=== PATIENT | female | born 1990 | race African-American/Black ===

== ENCOUNTER 2019-08-21 14:48 | Outpatient (CLI) | payer OTHER, SELFPAY ==
--- NOTE | ~2019-08-21 | XR_ITS ---
EXAMINATION: XR thoracic spine 2V DATE: 08/21/2019 15:08 INDICATION: Mid back pain. TECHNIQUE: One AP, lateral and lateral swimmer's views of the thoracic spine were obtained. COMPARISON: Two-view chest radiograph dated 06/06/2017 FINDINGS: Hypoplastic riblets/unfused transverse processes bilaterally at L1. There are 12 more cephalad paired rib-bearing thoracic segments. 6 degrees Lasix levocurvature measured between T6 and T11. Sagittal a lignment is normal. Vertebral body and disc heights are normal. Paravertebral soft tissues are unrema rkable. Visual is portions of the lungs are clear with no pleural effusion or pneumothorax. Cardiomed iastinal silhouette is normal. IMPRESSION: 1. Mild thoracic levocurvature. Reviewed, dictated and finalized at location A. E EMBOSSER
[2019-08-21 15:26] LABS: Influenza Control Valid (Valid)
== END 2019-08-21 14:49 | disposition home or self-care (01) ==
LOC: CHSLAB 14:52
PROVIDERS: PCP Internal Medicine; Visit Provider Nurse Practitioner Family
DX: J02.9 Acute pharyngitis, unspecified (principal); J06.9 Acute upper respiratory infection, unspecified; M54.9 Dorsalgia, unspecified
CPT/HCPCS: 72070; 87081; 87804; 87880

== ENCOUNTER 2019-12-05 14:29 | Outpatient (CLI) | payer OTHER, SELFPAY | END 2019-12-05 14:30 | disposition home or self-care (01) | LOC: CHSLAB 14:31 | PROVIDERS: PCP Internal Medicine; Visit Provider Internal Medicine | DX: J02.9 Acute pharyngitis, unspecified (principal) | CPT/HCPCS: 87081; 87880 ==

== ENCOUNTER 2020-07-23 15:19 | Outpatient (CLI) | payer OTHER, SELFPAY ==
--- NOTE | ~2020-07-23 | XR_ITS ---
XR lumbar spine 2-3V DATE: 07/23/2020 15:49 INDICATION: Lower back pain radiating to left lower extremity TECHNIQUE: AP, lateral, coned lateral lumbosacral views COMPARISON: None FINDINGS: There is very mild dextroscoliosis of the lumbar spine. No fracture or bone destruction or spondylolisthesis. The lumbar and lumbosacral interspaces are well preserved. The included lower thoracic and lumbar pedicles are intact. The sacroiliac joints are nor mal. There is a prominent amount of fecal material in the colon. IMPRESSION: Very mild dextro scoliosis; otherwise negative lumbar spine Reviewed, dictated and finalized at location A. RY SUPERVISOR OPEN PIT
== END 2020-07-23 15:20 | disposition home or self-care (01) ==
LOC: CHSLAB 15:22
PROVIDERS: PCP Internal Medicine; Visit Provider Internal Medicine
DX: M54.9 Dorsalgia, unspecified (principal); M54.30 Sciatica, unspecified side
CPT/HCPCS: 72100

== ENCOUNTER 2020-07-27 08:06 | Outpatient (RCR) | payer OTHER, SELFPAY ==
--- NOTE | 2020-07-27 08:49 | PTOPEVAL ---
Thank you for referring Elisha Demarco to [facility].? The patient is scheduled to be seen for therapy? __2__x/week for 12 visits. Please review, sign, date and return this plan of care JULIETA. I agree with and certify that the following plan of care is medically necessary. Referring Physician Date Admitting Provider: Attending Provider: Joshua Cook MD Referring Provider: *PT Outpatient Evaluation Start: 07/27/20 08:06 Freq: Status: Active Protocol: Document 07/27/20 08:06 TED (Rec: 07/27/20 08:47 TED [id number]) Therapy Assessment Status Assessment Status Assessment Status Evaluation Evaluation Information Problem Diagnosis lumbar pain Onset 07/12/20 Subjective Information Pt. reports that she woke with Query Text:As Reported By Patient/ low back pain about 2 weeks Family ago. Pt. describes pain in the left low back and across. She states that pain will shoot down the front of the left leg to her toes. She reports that pain will make falling asleep difficult. She reports that she has 3 small children that she does lift often. She reports that she has hx of back pain, and states that she has had on/off pain since high school. She reports that her goal for therapy is to decrease her back pain. Prior Level of Function Activity Level (Last 3 Months) Occupation student Hand Dominance Right Activity of Daily Living Ability Independent Indoor/Home Mobility Independent Community Mobility Independent Stairs Ability Independent Functional Cognition (Planning, Shopping Independent , Taking Medications) Cooking Yes Cleaning Yes Laundry Yes Shopping Yes Driving Yes Pain Assessment Timing of Pain Assessment Timing of Pain Assessment Pre-Treatment Pain Scale Pain Scale Used Numeric (1 - 10) Self Report Pain Assessment Lower Back Reported Pain Level 4 Pain Description Radiating Pain Radiation Left Leg Pain Frequency Continuous Lowest Pain Intensity 4 Greatest Pain Intensity 7 Pain Aggravating Factors
== END 2020-09-29 14:37 | disposition home or self-care (01) ==
LOC: CHSPT 08:06
PROVIDERS: PCP Internal Medicine; Visit Provider Internal Medicine
DX: M54.5 Low back pain (principal)
CPT/HCPCS: 97014; 97110; 97140; 97161; G0283

== ENCOUNTER 2021-07-13 17:48 | Outpatient (CLI) | payer OTHER, SELFPAY ==
--- NOTE | ~2021-07-13 | XR_ITS ---
EXAMINATION: XR chest 2V DATE: 07/13/2021 18:08 INDICATION: Cough and shortness of breath. TECHNIQUE: Frontal and lateral views of the chest were obtained. COMPARISON: Chest 2 views 06/06/2017 FINDINGS: The chest demonstrates clear lungs without pneumonia, pleural effusion, or pneumothorax. Th e heart size is normal. IMPRESSION: 1. No acute cardiopulmonary disease. Reviewed, dictated and finalized at location A. [place] BAKERY MANAGER
[2021-07-13 18:04] LABS: Basophils Absolute Auto 0.02 K/mm3 (0.00-0.10); Basophils Percent Auto 0.3 % (0.0-1.0); Eosinophils Percent Auto 1.5 % (1.0-6.0); Hematocrit 37.2 % (35.0-49.0); Hemoglobin 12.1 g/dL (12.0-15.0); Immature Granulocyte Absolute 0.02 K/mm3 (0.00-0.00); Immature Granulocyte Percent A 0.3 % (0.0-0.0); Lymphocytes Absolute Auto 1.13 K/mm3 (1.10-4.50); Lymphocytes Percent Auto 17.3 % (18.0-42.0); Mean Corpuscular HGB Conc 32.5 g/dL (32.0-36.0); Mean Corpuscular Hemoglobin 28.9 pg (27.0-31.0); Mean Platelet Volume 11.2 fl (9.2-11.8); Monocytes Absolute Auto 0.59 K/mm3 (0.10-0.90); Neutrophils Absolute Auto 4.7 K/mm3 (1.7-7.2); Neutrophils Percent Auto 71.6 % (50.0-70.0); Platelet Count Result 302 K/mm3 (150-420); Red Blood Count 4.18 M/mm3 (4.20-5.40); Red Cell Distribution Width 11.9 % (11.6-14.4); White Blood Count 6.6 K/mm3 (4.8-10.8)
[2021-07-13 18:18] LABS: D Dimer 0.24 mg/L (0.19-0.50)
[2021-07-13 18:21] LABS: Alanine Aminotransferase 44 U/L (14-59); Albumin Level 3.4 g/dL (3.4-5.0); Alkaline Phosphatase 79 U/L (46-116); Anion Gap 11 mmol/L (8-16); Aspartate Amino Transferase 25 U/L (15-37); Bilirubin,Total 0.4 mg/dL (0.00-1.00); Blood Urea Nitrogen 4 mg/dL (7-18); CRP 5.7 mg/dL (0.0-0.9); Calcium 8.9 mg/dL (8.5-10.1); Carbon Dioxide 26 mmol/L (21-32); Chloride 101 mmol/L (98-108); Estimated Glomerular Filt Rate > 60; Glucose 89 mg/dL (70-99); Osmolality Calculated 281 mOsm/kg (285-295); Potassium 3.3 mmol/L (3.5-5.1); Sodium 138 mmol/L (136-145); Total Protein 7.9 g/dL (6.4-8.2)
== END 2021-07-13 17:49 | disposition home or self-care (01) ==
PROVIDERS: PCP Internal Medicine; Visit Provider Internal Medicine
DX: R05.9 Cough, unspecified (principal); R06.02 Shortness of breath
CPT/HCPCS: 36415; 71046; 80053; 85025; 85380; 86140

== ENCOUNTER 2021-07-25 15:46 | Outpatient (CLI) | payer OTHER, SELFPAY ==
--- NOTE | ~2021-07-25 | XR_ITS ---
EXAMINATION: XR chest 2V DATE: 07/25/2021 16:16 INDICATION: Upper respiratory infection TECHNIQUE: PA and lateral views of the chest are obtained. COMPARISON: 07/13/2021 FINDINGS: The lungs are free of acute opacities. There is no pleural effusion or pneumothorax. The ca rdiomediastinal silhouette is normal. The visualized bones and soft tissues are unremarkable. IMPRESSION: 1. No acute cardiopulmonary abnormality. Reviewed, dictated and finalized at location B. CTOR OF CARDIOLOGY
[2021-07-25 16:09] LABS: Hematocrit 41.6 % (35.0-49.0); Hemoglobin 13.4 g/dL (12.0-15.0); Mean Corpuscular HGB Conc 32.2 g/dL (32.0-36.0); Mean Corpuscular Hemoglobin 28.6 pg (27.0-31.0); Mean Corpuscular Volume 88.7 fL (78.0-102.0); Mean Platelet Volume 11.2 fl (9.2-11.8); Platelet Count Result 323 K/mm3 (150-420); Red Blood Count 4.69 M/mm3 (4.20-5.40); Red Cell Distribution Width 11.9 % (11.6-14.4); White Blood Count 3.6 K/mm3 (4.8-10.8)
[2021-07-25 16:20] LABS: Influenza Control Valid (Valid)
[2021-07-25 16:23] LABS: Alanine Aminotransferase 45 U/L (14-59); Albumin Level 3.9 g/dL (3.4-5.0); Alkaline Phosphatase 74 U/L (46-116); Amylase 91 U/L (25-115); Anion Gap 11 mmol/L (8-16); Aspartate Amino Transferase 21 U/L (15-37); Bilirubin,Total 0.5 mg/dL (0.00-1.00); Blood Urea Nitrogen 10 mg/dL (7-18); Carbon Dioxide 26 mmol/L (21-32); Chloride 99 mmol/L (98-108); Estimated Glomerular Filt Rate > 60; Glucose 96 mg/dL (70-99); Lipase 150 U/L (73-393); Osmolality Calculated 281 mOsm/kg (285-295); Potassium 3.6 mmol/L (3.5-5.1); Sodium 136 mmol/L (136-145); Total Protein 8.7 g/dL (6.4-8.2)
[2021-07-25 16:36] LABS: Band Neutrophils Percent 0 % (0-6); Basophils Percent Manual 0 % (0-1); Eosinophils Absolute Manual 0.21 K/mm3 (0.02-0.5); Eosinophils Percent Manual 6 % (1-6); Lymphocytes Absolute Manual 0.86 K/mm3 (1.1-4.5); Lymphocytes Percent Manual 24 % (18-44); Monocytes Percent Manual 14 % (3-9); Neutrophils Absolute Manual 2.01 K/mm3 (1.7-7.2); Neutrophils Percent Manual 56 % (46-73); Platelet Estimate Adequate (Adequate); Total Cells Counted 100
== END 2021-07-25 15:47 | disposition home or self-care (01) ==
LOC: CHSLAB 15:48
PROVIDERS: PCP Internal Medicine; Visit Provider Nurse Practitioner Family
DX: J06.9 Acute upper respiratory infection, unspecified (principal); Z86.16 Personal history of COVID-19; R09.89 Other specified symptoms and signs involving the circulatory and respiratory systems; R50.9 Fever, unspecified; R11.10 Vomiting, unspecified
CPT/HCPCS: 71046; 80053; 82150; 83690; 85025; 87804

== ENCOUNTER 2022-03-15 18:02 | Outpatient (CLI) | payer OTHER, SELFPAY ==
--- NOTE | ~2022-03-15 | XR_ITS ---
EXAM: XR hand LT min 3V, XR wrist LT min 3V DATE: 03/15/2022 18:28 HISTORY: LEFT WRIST PAIN. TENDONITIS. LEFT HAND PAIN . COMPARISON: None available. FINDINGS: Normal mineralization. No fracture or dislocation. No lytic or blastic lesion. Joint space s are maintained. No erosion or periosteal change. Soft tissues within normal limits. IMPRESSION: Normal left hand and wrist radiograph findings. Reviewed, dictated and finalized at location K. IMPRESSION: Normal left hand and wrist radiograph findings.
== END 2022-03-15 18:03 | disposition home or self-care (01) ==
LOC: CHSIMG 18:04
PROVIDERS: PCP Internal Medicine; Visit Provider Internal Medicine
DX: M25.532 Pain in left wrist (principal)
CPT/HCPCS: 73110; 73130

== ENCOUNTER 2022-09-20 17:34 | Outpatient (CLI) | payer OTHER, SELFPAY ==
[2022-09-20 19:11] LABS: Strep Group A RT-PCR NOT DETECTED (Negative)
[2022-09-20 19:22] LABS: Influenza A QL RT-PCR Negative (Negative); Influenza B QL RT-PCR Negative (Negative); SARS-CoV-2 RNA PCR Negative (Negative)
== END 2022-09-20 17:35 | disposition home or self-care (01) ==
PROVIDERS: PCP Internal Medicine; Visit Provider Internal Medicine
DX: J06.9 Acute upper respiratory infection, unspecified (principal); Z20.822 Contact with and (suspected) exposure to COVID-19
CPT/HCPCS: 87502; 87651; U0003; U0005

== ENCOUNTER 2022-11-14 09:37 | Outpatient (CLI) | payer OTHER, SELFPAY ==
--- NOTE | ~2022-11-14 | XR_ITS ---
EXAMINATION: XR wrist LT min 3V DATE: 11/14/2022 09:52 INDICATION: Left wrist pain. TECHNIQUE: 4 views of left wrist were obtained. COMPARISON: Left hand radiographs 03/15/2022 FINDINGS: Bone alignment is normal. No fracture. Joint spaces are well maintained. IMPRESSION: 1. Normal left wrist. Reviewed, dictated and finalized at location A. IMPRESSION: 1. Normal left wrist.
== END 2022-11-14 09:38 | disposition home or self-care (01) ==
LOC: CHSIMG 09:39
PROVIDERS: PCP Internal Medicine; Visit Provider Orthopaedic Surgery
DX: M25.532 Pain in left wrist (principal)
CPT/HCPCS: 73110

== ENCOUNTER 2022-11-23 07:47 | Outpatient (CLI) | payer OTHER, SELFPAY ==
--- NOTE | ~2022-11-23 | MR_ITS ---
MRI of the left wrist Technique: Coronal T1 weighted and proton density fat sat images, and axial and sagittal proton-densi ty and proton-density fat-sat images were acquired. Clinical History: Mass at base of thumb Findings: Scapholunate ligament is intact, and there is no widening of the scapholunate interval. Erickson otriquetral ligament is intact. TFCC is intact, without evidence of perforation. Bone marrow signals are unremarkable. Joint spaces are preserved. At the volar aspect of the first ca rpal metacarpal joint region, there is a 1.6 x 0.7 x 1.2 cm ganglion cyst. No other abnormal soft tis ana maria mass or fluid collection identified. Flexor and extensor tendons are intact. Visualized musculatu re unremarkable. IMPRESSION: 1.6 x 0.7 x 1.2 cm ganglion cyst at the volar aspect of the first CMC joint region. Reviewed, dictated and finalized at [facility]. IMPRESSION: 1.6 x 0.7 x 1.2 cm ganglion cyst at the volar aspect of the first CMC joint reg ion.
== END 2022-11-23 07:48 | disposition home or self-care (01) ==
PROVIDERS: PCP Internal Medicine; Visit Provider Orthopaedic Surgery
DX: R22.32 Localized swelling, mass and lump, left upper limb (principal); M67.432 Ganglion, left wrist
CPT/HCPCS: 73221

== ENCOUNTER 2023-01-03 01:08 | Day surgery (SDC) | payer OTHER, SELFPAY ==
[2022-12-25 12:45] VITALS: BMI 23.3
--- NOTE | 2022-12-25 12:58 | PC.NURSE ---
Report to the Outpatient Waiting Room, entrance under the green pavilion located off [facility], at 1200 on 01/03/23. Planned Procedure Time: 1400. Time changes happen often and if your time is changed the preop area will call you the afternoon before. - You and your visitor will be asked to self-screen and do not enter if you have any COVID symptoms. - A mask is optional within the hospital at this time. Patients may have clear liquids (water, carbonated beverages, clear teas, apple juice) until 3 hours prior to surgery with a maximum of 20 ounces. - No food from midnight until time of surgery Take the following medications with a SIP of water the morning of surgery: N/A DO NOT STOP ANY OF YOUR OTHER PRESCRIPTION MEDICATIONS PRIOR TO SURGERY ?EXCEPT THE FOLLOWING Medications to discontinue per physician N/A Date to take last dose N/A Please no make-up, nail malagasy, hairspray, perfume, deodorant, or body powder the day of surgery. No jewelry (including any body piercings) or valuables the day of surgery, leave them at home. Please take a shower or bath the night before, or the morning of, surgery with an antibacterial soap. Wear comfortable, loose fitting clothing. - Jewelry must be removed prior to entering the operating room. Rings and piercings that are not removed may be cut off. - The hospital will not accept responsibility for valuables. - Please leave all valuables, including medications, at home the day of surgery. If you are going home after surgery, a licensed yard driver must drive you home. - NO public transportation without another adult if you receive anesthesia. - We recommend that an adult stay with you for 24 hours following discharge. - We also recommend that you do not drive, make important decision, drink alcoholic beverages, or take any drugs that were not prescribed by your health care provider for at least 24 hours after your discharge time. Follow any additional instructions given to you from your surgeon. If you or anyone in your household have experienced Covid symptoms in the past week, please notify your surgeon or the nurse liaison at the phone number below for possible testing. Telephone instructions given to patient and asked if any additional questions and then verbalized understanding. Patient advised to call surgeon office or pre surgery nurse liaison [phone] if any additional questions.
[2023-01-03] VITALS (9 sets, daily range): BP systolic 109–131; BP diastolic 65–81; PULSE 60–73; RESP 12–16; TEMP 36.3–36.8; O2SAT 99–100
--- NOTE | 2023-01-03 07:15 | WPDHPUPDATE1 ---
History and Physical Update Update Date/Time: 01/03/23 07:15 History and Physical has been reviewed, including an updated exam of the patient. There are NO changes in the patient's condition. Risks, benefits, and alternatives have been discussed and questions answered. Patient agrees to proceed with procedure.
[2023-01-03] MEDS: ACETAMINOPHEN 500 MG TABLET 1000 MG PO (12:46)
[2023-01-03] MEDS: CELECOXIB 200 MG CAPSULE PO (12:46)
--- NOTE | 2023-01-03 14:08 | P.PNAN_ITS ---
Anes - Initial Pre Proc Eval Procedure: Operation Date: 01/03/23 14:00 Proposed Procedures p Excision Mass Left Wrist - Fabien Cat MD Date/Time: 01/03/23 14:08 Surgeon: Fabien Cat MD Pre Op Diagnosis: left wrist ganglion cyst Patient Data Age: 32 Gender: F Height: 1.57 m Weight: 59.2 kg Last Vital Signs Temp 98.3 F 01/03/23 12:37 Pulse 66 01/03/23 12:37 Resp 16 01/03/23 12:37 BP 109/74 01/03/23 12:37 Pulse Ox 100 01/03/23 12:37 O2 Del Method Room Air 01/03/23 12:37 Allergies Allergy/AdvReac Type Severity Reaction Status Date / Time Penicillins AdvReac Intermediate Swelling Verified 01/03/23 12:05 Home Medications Medication Instructions Recorded Confirmed Type chlorhexidine gluconate 4 % 1 applic topical DAILY #237 mL 12/27/22 Rx topical liquid (Hibiclens) rizatriptan 5 mg disintegrating 5 mg PO DAILY PRN Migraine Headache 01/03/23 01/03/23 History tablet Patient hx anesthesia problems: none Family hx anesthesia problems: none Results Review: All pre-operative results and documents have been reviewed as part of the pre- operative evaluation. [facility] Family History Family History Unknown Asthma Hypertension Depression Heart disease Arthritis Cerebrovascular accident Kidney disorder Social History Social History Smoking status: Former smoker Tobacco type: cigars Additional smoking assessment comments: occasional in high school 2008 Alcohol intake: current Drinks per week: 2 Substance use: former Other substance usage details: marijuana in college Living arrangements: with family Gender identity (if verbalized by the patient): Female Spiritual care concerns: No Anes - Eval Final PreProcedure Day of Procedure 01/03/23 14:08 Patient weight: normal Heart: regular rate and rhythm Lungs: clear to auscultation Airway: Mallampati scale class II Neurological: alert and oriented Last oral intake: >/= 8 hours ASA classification: II Emergent: no Anesthetic plan: proceed Anesthesia type and monitoring: general GIVS and standard monitoring Results Review: All pre-operative results and documents have been reviewed as part of the pre- operative evaluation. Informed Consent: The patient's anesthetic plan and its attendant risks and benefits were discussed with the patient/family/POA. Questions were solicited and answers provided to the satisfaction of the patient/family/POA.
[2023-01-03] MEDS: ceFAZolin 2 GM/D5W 50 ML 2 GM/50 ML BAG IVPB (14:47)
--- NOTE | 2023-01-03 15:08 | PM.IMHP ---
H&P: HPI History of Present Illness Date/Time: 01/03/23 15:08 Chief Complaint: LEFT THUMB AND WRIST PAIN. Narrative: CARLOS IS HERE FOR FOR LEFT THUMB AND WRST PAIN. SHE HAS A LARGE GANGLION AT THE 1ST CMC JOINT AND SHE IS HERE FOR EXCISION OF GANGLION LEFT WRIST Review of Systems Review of Systems: All systems reviewed & are unremarkable except as noted in HPI and below PMFSH Family History Family History Unknown Asthma Hypertension Depression Heart disease Arthritis Cerebrovascular accident Kidney disorder Social History Social History Smoking status: Former smoker Tobacco type: cigars Additional smoking assessment comments: occasional in high school 2008 Alcohol intake: current Drinks per week: 2 Substance use: former Other substance usage details: marijuana in college Living arrangements: with family Gender identity (if verbalized by the patient): Female Spiritual care concerns: No Meds Home Medications and Allergies Home Medications Medication Instructions Recorded Confirmed Type chlorhexidine gluconate 4 % 1 applic topical DAILY #237 mL 12/27/22 Rx topical liquid (Hibiclens) rizatriptan 5 mg disintegrating 5 mg PO DAILY PRN Migraine Headache 01/03/23 01/03/23 History tablet Allergies Allergy/AdvReac Type Severity Reaction Status Date / Time Penicillins AdvReac Intermediate Swelling Verified 01/03/23 12:05 Vital Signs Vital Signs - 24 hr 01/03/23 12:37 Temperature 36.8 C Pulse Rate 66 Respiratory Rate 16 Blood Pressure 109/74 Pulse Oximetry 100 Oxygen Delivery Room Air Exam Const: General: cooperative and healthy appearing HENMT: Head: normal to inspection Ears: hearing grossly normal bilaterally Eyes: General: appearance normal, both eyes and all related structures Visual Guillen: normal visual guillen by confrontation Neck: Neck: normal visual inspection and full ROM Resp: Effort & Inspection: normal respiratory effort and able to speak in complete sentences Cardio: Jugular venous distension: no JVD Rate: regular rate Rhythm: regular rhythm Heart sounds: S1 normal heart sound present and S2 normal heart sound present Skin: General skin exam: normal color, no rashes or lesions noted and elasticity normal Neuro: General: oriented to person, oriented to place, oriented to time, patient oriented x3 and gait normal Extrem: Left upper extremity: wrist abnormal to inspection, tenderness, swelling, abnormal ROM, crepitus, deformity (MASS OVER 1ST CMC JOINT ), normal Jan's test, Tinel's negative and Phalen's negative; no abrasions, no lacerations and no ecchymosis and hand normal to inspection, normal capillary refill, neuromotor exam normal, neurosensory exam normal, tendon exam normal, vascular exam radial pulse present, ulnar pulse present and normal capillary refill, normal ROM of fingers and no swelling; no tenderness, no abrasions, no lacerations and no ecchymosis Psych: Appearance: grossly normal and well kempt Speech and movement: Normal speech and movement present Affect: normal affect Thought process: Normal thought process present Assessment and Plan Assessment and plan (1) Mass of left wrist: Code(s): R22.32 - Localized swelling, mass and lump, left upper limb Status: Acute Assessment and Plan: CARLOS IS HERE FOR EXCISION OF MASS LEFT WRIST WHICH IS MOST LIKE A GANGLION CYST FROM THE 1ST CMC JOINT. SHE HAS BEEN IN PAIN FOR MANY MOS AND THUS AFFECTS HER DAILY ACTIVITIES. DISCUSSED NONOPERATIVE AND OPERATIVE TREATMENT OPTIONS WITH THE PATIENT. THE PATIENT'S QUESTIONS WERE ANSWERED. THE PATIENT DESIRES OPERATIVE TREATMENT. HISTORY, EXAM AND RADIOGRAPHS REVIEWED WITH THE PATIENT. REFERRING PHYSICIAN RECORDS AND IMAGES REVIEWED. CONDITION, NATURE, ETIOLOGY AND COURSE OF NATURAL HISTORY REVIEWED. ZURDO
[2023-01-03] MEDS: BUPivacaine HCL 0.5% 10 ML AMP INFILTRATE (15:33)
[2023-01-03] MEDS: LACTATED RINGERS 1,000 ML 30 ML IV CONT ×2 (16:10→16:20)
--- NOTE | 2023-01-03 16:25 | W.PM.PROC2 ---
Procedure Note - Detailed Date of Procedure 01/03/23 Pre-op Diagnosis left wrist ganglion cyst Post-op Diagnosis Same Procedure Performed LEFT WRIST MASS Surgeon Fabien Cat MD Anesthesia General Description of Procedure THE LEFT UPPER EXTREMITY WAS PREPPED AND DRAPED IN THE STERILE FASHION. THE MASS WAS IDENTIFIED OVER THE 1ST CMC JOINT AT THE VOLAR WRIST. INCISION WAS MADE.DOWN TO THE SUB CUTANEOUS TISSUES. DISSECTION CONTINUED UNTIL THE MASS WAS IDENTIFIED. IT APPEARED TO BE A GANGLION CYST. DISSECTION CONTINUED TILL THE CMC JOINT WAS IDENTIFIED. THE CYST STALK WAS THEN IDENTIFIED AND THE CYST WAS REMOVED FROM ITS ORIGIN IN ITS ENTIRETY. THE TOURNIQUET WAS DEFLATED. THE WOUND WAS WASHED AND THE BLEEDERS WERE CAUTERIZED. THE SUB-CUTANEOUS LAYER WAS REPAIRED WITH 3-0 VICRYL, THEN THE SKIN WAS APPROXIMATED WITH 4-0 NYLON. THE WOUND WAS WASHED AND STERILE DRESSING WAS APPLIED. THE PATIENT WAS EXTUBATED. Estimated Blood Loss -5.0 Complications No immediate complications Condition Stable Disposition PACU
[2023-01-03] MEDS: ONDANSETRON INJ 4 MG/2 ML VIAL IV PUSH ×2 (16:29→17:41)
[2023-01-03] MEDS: fentaNYL CITRATE INJ (*CRX) 100 MCG/2 ML VIAL 25 MCG IV PUSH (16:47)
[2023-01-03] MEDS: SCOPOLAMINE 1.5 MG PATCH TRANSDERM (17:41)
[2023-01-03] MEDS: oxyCODONE HCL (*CRX) 5 MG TAB IR PO (18:23)
== END 2023-01-03 18:50 | disposition home or self-care (01) ==
PROVIDERS: PCP Internal Medicine; Visit Provider Orthopaedic Surgery
PROC: (CPT 25111; principal; 2023-01-03 14:00)
DX: M67.432 Ganglion, left wrist (principal)
CPT/HCPCS: 25111; A9270; J0690; J1100; J2250; J2405; J2704; J3010; J7120

== ENCOUNTER 2023-06-08 17:22 | Emergency (ER) | payer OTHER, SELFPAY ==
[2023-06-08 17:29] VITALS: BP 135/79; PULSE 81; RESP 12; TEMP 37.2; O2SAT 100
[2023-06-08 18:06] LABS: Basophils Absolute Auto 0.01 K/mm3 (0.00-0.10); Basophils Percent Auto 0.2 % (0.0-1.0); Eosinophils Absolute Auto 0.07 K/mm3 (0.02-0.50); Eosinophils Percent Auto 1.5 % (1.0-6.0); Hematocrit 32.9 % (35.0-49.0); Hemoglobin 10.5 g/dL (12.0-15.0); Immature Granulocyte Absolute 0.01 K/mm3 (0.00-0.00); Immature Granulocyte Percent A 0.2 % (0.0-0.0); Lymphocytes Percent Auto 34.4 % (18.0-42.0); Mean Corpuscular HGB Conc 31.9 g/dL (32.0-36.0); Mean Corpuscular Hemoglobin 27.9 pg (27.0-31.0); Mean Corpuscular Volume 87.5 fL (78.0-102.0); Mean Platelet Volume 10.8 fl (9.2-11.8); Monocytes Absolute Auto 0.41 K/mm3 (0.10-0.90); Monocytes Percent Auto 8.8 % (2.0-11.0); Neutrophils Absolute Auto 2.6 K/mm3 (1.7-7.2); Neutrophils Percent Auto 54.9 % (50.0-70.0); Platelet Count Result 268 K/mm3 (150-420); Red Blood Count 3.76 M/mm3 (4.20-5.40); Red Cell Distribution Width 12.5 % (11.6-14.4); White Blood Count 4.7 K/mm3 (4.8-10.8)
[2023-06-08 18:10] LABS: Appearance Urine Clear (Clear); Bilirubin Urine Negative (Negative); Color Urine Light Yellow (Yellow); Glucose Urine UA Negative (Negative); Ketones Urine Negative (Negative); Leukocyte Esterase Ur Trace LEU/UL (Negative); Nitrate Urine Negative (Negative); Protein Urine Negative (Negative); Urobilinogen Urine 0.2 mg/dL (0.2-1.0)
[2023-06-08] MEDS: LACTATED RINGERS 1,000 ML 999 ML IV CONT (18:11)
[2023-06-08 18:12] LABS: Pregnancy On Board Control Positive; Urine Pregnancy Test Positive
[2023-06-08] MEDS: ONDANSETRON INJ 4 MG/2 ML VIAL IV PUSH (18:12)
[2023-06-08 18:22] LABS: Add Urine Microscopic? YES; Alanine Aminotransferase 20 U/L (14-59); Albumin Level 3.6 g/dL (3.4-5.0); Alkaline Phosphatase 55 U/L (46-116); Anion Gap 5 mmol/L (8-16); Aspartate Amino Transferase 11 U/L (15-37); Bacteria Urine Trace /hpf; Bilirubin,Total 0.2 mg/dL (0.00-1.00); Blood Urea Nitrogen 8 mg/dL (7-18); Blood Urine Trace-lysed (Negative); Calcium 8.7 mg/dL (8.5-10.1); Carbon Dioxide 28 mmol/L (21-32); Chloride 101 mmol/L (98-108); Estimated CRCL calculation 70 ml/min; Estimated Glomerular Filt Rate > 60; Glucose 96 mg/dL (70-99); Osmolality Calculated 276 mOsm/kg (285-295); Potassium 3.6 mmol/L (3.5-5.1); Sodium 134 mmol/L (136-145); Squamous Epithelial Cell Urine Few /hpf (Few); Total Protein 7.5 g/dL (6.4-8.2); WBC Urine 0-3 /hpf (0-3)
--- NOTE | 2023-06-08 18:24 | PC.NURSE ---
attempts to start iv unsuccessful x2.
[2023-06-08 18:25] LABS: Lactic Acid Reflex 0.7 mmol/L (0.4-2.0)
--- NOTE | 2023-06-08 18:35 | PC.NURSE ---
hiv testing declined and form signed.
[2023-06-08] MEDS: ACETAMINOPHEN 500 MG TABLET 1000 MG PO (19:43)
--- NOTE | 2023-06-08 19:46 | ED.ABDPAIN ---
HPI - Abdominal Pain General Chief Complaint: Abdominal Pain Stated Complaint: vaginal bleeding; abdominal pain Time Seen by Provider: 06/08/23 17:50 Source: patient Mode of arrival: ambulatory Limitations: no limitations History of Present Illness HPI narrative: Patient is a 32-year-old female with no significant past medical history that presents today with minor pelvic pain. She states she has a bili pain for the last few days. She did heal precede this last week that was positive. She has had some spotting. She denies any large amounts of blood but just spotting of blood. She had minor pelvic pain after intercourse. She denies any systemic symptoms. She is not seeing her Test Rack Operator yet. MD elicited complaint: other Pertinent past history: none Onset (ago): minute(s) Pain Consistency: constant Location: none Severity: mild Quality: cramping Radiation: none Migration to: no migration Exacerbating factors: nothing Relieving factors: nothing Context: confirms foreign travel Associated symptoms: denies other symptoms Related Data Hx Last Menstrual Period: unknown Patient : Yes Home Medications Medication Instructions Recorded Confirmed rizatriptan 5 mg disintegrating 5 mg PO DAILY PRN Migraine Headache 01/03/23 04/17/23 tablet Allergies Allergy/AdvReac Type Severity Reaction Status Date / Time Penicillins AdvReac Intermediate Swelling Verified 04/17/23 09:21 Review of Systems Review of Systems: All systems reviewed & are unremarkable except as noted in HPI and below Constitutional: Constitutional: Reports no additional constitutional complaints Eyes: Eyes: Reports no additional eye complaints ENT: Reports system reviewed and no additional complaints, except as documented Cardiovascular: Cardiovascular: Reports no additional cardiovascular complaints Respiratory: Respiratory: Reports no additional respiratory complaints Gastrointestinal: Gastrointestinal: Reports as per HPI Genitourinary: Genitourinary: Reports as per HPI Musculoskeletal: Musculoskeletal: Reports no additional musculoskeletal complaints Integumentary/Breasts: Skin/Breast: Reports system reviewed and no additional complaints, except as docu Neurologic: Reports system reviewed and no additional complaints, except as documented Psychiatric: Psychiatric: Reports no additional psychiatric complaints Endocrine: Endocrine: Reports no additional endocrine complaints Hematologic/Lymphatic: Hematologic/Lymphatic: Reports no additional hematologic/lymphatic complaints Allergic/Immunologic: Allergic/Immunologic: Reports no additional allergic/immunologic complaints PMFSH Family History Family History Unknown Asthma Hypertension Depression Heart disease Arthritis Cerebrovascular accident Kidney disorder Social History Social History Smoking status: Former smoker Tobacco type: cigars Additional smoking assessment comments: occasional in high school 2008 Alcohol intake: current Drinks per week: 2 Substance use: former Other substance usage details: marijuana in college Living arrangements: with family Gender identity (if verbalized by the patient): Female Spiritual care concerns: No Exam Const: General: healthy appearing Nutritional Appearance: well nourished Orientation/consciousness: patient oriented x3 Limitations: no limitations HENMT: Head: normal to inspection Ears: external ears normal Face/Nose/Sinus: Normal external nose present Face and sinus: normal facial exam Mouth: Yes Normal oral and palatal mucosa present Teeth and gingiva: dentition normal Throat: posterior oropharynx normal Eyes: Conjunctivae: conjunctivae normal Pupils: Equal, round and reactive pupils present EOM: EOMs intact bilaterally Neck: Neck: normal visual inspection Chest: Chest palpatio
== END 2023-06-08 20:29 | disposition home or self-care (01) ==
PROVIDERS: Emergency Provider Family Medicine; PCP Internal Medicine
DX: O23.40 Unspecified infection of urinary tract in pregnancy, unspecified trimester (principal); N39.0 Urinary tract infection, site not specified; Z3A.00 Weeks of gestation of pregnancy not specified; Z87.891 Personal history of nicotine dependence
CPT/HCPCS: 36415; 80053; 81001; 81025; 83605; 84702; 85025; 96361; 96374; 99284; J2405; J7120

== ENCOUNTER 2025-03-20 08:24 | Emergency (ER) | payer OTHER, SELFPAY ==
[2025-03-20] VITALS (22 sets, daily range): BP systolic 114–143; BP diastolic 76–91; PULSE 60–77; RESP 11–19; TEMP 36.8; O2SAT 97–100
--- NOTE | ~2025-03-20 | XR_ITS ---
Examination: XR chest 1V portable Clinical History: acute onset cp Comparison: 07/25/2021 Technique: Portable AP Findings: Heart size normal. Lungs clear. No acute bony abnormality. IMPRESSION: 1. No acute cardiopulmonary findings given portable technique. Reviewed, dictated and finalized at location R.
--- NOTE | 2025-03-20 08:24 | ECG_ITS ---
Test Date: 2025-03-20 08:29:23 Measurements Intervals Aston Rate: 72 P: 55 LA: 152 QRS: 28 QRSD: 77 T: 35 QT: 393 QTc: 432 Interpretive Statements SINUS RHYTHM NONSPECIFIC T-WAVE ABNORMALITY No previous ECG available for comparison Electronically Signed On 03-20-2025 20:09:28 CDT by Malinda Levine M.D.
--- OUTSIDE RECORDS SUMMARY | 2025-03-20 08:27 | XMS_ITS | Encounter Summary ---
Author Organization [facility] Healthcare Address [address] [place] [address] Care Team Providers Care Robotic Machine Tender Production Name Role Phone No, Physician Primary Care Provider Unknown, Notinfile Primary Care Provider Unavail able Joshua Cook MD Primary Care Provider [phone] Mikki Reddy MD Primary Care Provider [phone] Jamel Peacock MD Unavailable [phone] Encounter Details Date Type Department Care Team (Late st Contact Info) Description 07/15/2018 Documentation [facility] [address] [place] [address] Izzy Ayoub RN Social History Tobacco Use Types Packs/Day Years Used Date Smoking Tobacco: Never Smokeless Tobacco: Never Alcohol Use Standard Drinks/Week Comments No 0 (1 standard drink = 0.6 oz pur e alcohol) Comments Yes Sex and Gender Information Value Date Recorded Sex Assigned at Not on file Legal Sex Female 1:43 PM SCIENTIST ENGINEER Gender Identity Female 10/02/2019 12:38 PM CDT Sexual Orientation Straight 10/02/2019 12 :38 PM CDT documented as of this encounter Plan of Treatment Not on file documented as of this encounter Visit Diagnoses Not on filedocumented in this encounter Additional Health Concerns Infection Onset Date Last Indicated Resolved Time COVID: Suspected 08/16/2023 08/16/2023 08/16/2023 5:10 PM SCIENTIST ENGINEER COVID: Suspected 08/16/2023 08/16/2023 08/17/2023 3:05 AM SCIENTIST ENGINEER COVID: Suspected 08/16/2023 08/16/2023 08/17/2023 7:02 AM SCIENTIST ENGINEER documented as of this encounter Care Teams Robotic Machine Tender Production Relationship Specialty Start Date End Date No, Physician PCP - General 04/03/17 04/19/20 Unknown, Notinfile PCP - General 04/20/20 04/07/21 Joshua Cook MD PCP - General 04/08/21 09/21/23 Mikki Reddy MD [address] [place] [address] PCP - General Family Medicine 09/22/23 Jamel Peacock MD [address] [place] [address] Predator Control Trapper Obstetrics and Gynecology 04/09/24 documented as of this encounter
--- OUTSIDE RECORDS SUMMARY | 2025-03-20 08:27 | XMS_ITS | Clinical Summary ---
Author Organization [facility] Address [address] [place] [id number] Care Team Providers Care Shoveler Name Role Phone Mikki Reddy MD Primary Care Provider [phone] Jamel Peacock MD Unavailable [phone] Allergies Active Allergy Reactions Criticality Noted Date Comments Penicillins Unknown 07/01/2017 Medications norethindrone (MICRONOR) 0.35 mg tabletIndications: Contraception Take one pill by mouth every day on time 28 tablet 12 05/19/2024 Active Active Problems Problem Noted Date Diagnosed Date Iron deficiency anemia, unspecified 12/17/2023 Vitamin D deficiency 10/15/2023 Pelvic and perineal pain 03/02/2022 Assessment & Plan (03/02/2022 10:54 AM CDT): Discussed options To decrease her caffeine and urinate at normal intervals To try benefiber daily We discussed adding ocp at the nexplanon does not seem to be suppressing her ovulation May be muscular as it does happen with working and 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 She will call if the pain worsens Recurrent major depressive disorder 12/15/2021 Assessment & Plan (12/28/2021 7:02 AM CDT): Mood off today, but I think she has so much going on with work and the kids, she is overwhelmed. She declines meds. I think she needs sleep and help at home Lymphadenopathy, axillary 12/15/2021 Overview (12/15/2021): 2 cm left axilla Assessment & Plan (12/15/2021 4:08 PM CDT): To keep track of. If it is still there in 2 weeks will decide on further evaluation. Leukocytosis 05/30/2021 Overview (05/30/2021): Will plan to repeat her cbc when she comes for f/u in 3 months. 05/29/21 CMT DUB (dysfunctional uterine bleeding) 05/27/2021 Assessment & Plan (12/15/2021 3:52 PM CDT): resolved Assessment & Plan (09/07/2021 11:52 AM CDT): Better today after two packs of ocn Assessment & Plan (05/27/2021 9:31 AM SKILL TRAINING PROGRAM COORDINATOR): Most likely secondary to the cyst or the Nexplanon To ocp x 2m To repeat usg in 3m. F/u after Ovarian cyst 05/27/2021 Overview (03/02/2022): 10/2021- 3x3 x2cm 03/02/22- left <2cm, Right 2.7. The cyst from 10/2021 has resolved. Assessment & Plan (03/02/2022 10:55 AM CDT): The previous cyst has resolved. Assessment & Plan (12/15/2021 3:58 PM CDT): Will plan to repeat in 3m. Assessment & Plan (09/07/2021 11:53 AM CDT): Options discussed. She will think about and let me know. Low grade squamous intraepit h lesion on cytologic smear cervix (lgsil) 02/10/2020 Overview (09/07/2021): Per JT note, last 3 paps (last 2.2020) wnl Assessment & Plan (03/02/2022 10:54 AM CDT): Last pap was wnl Will repeat in 11/2022 Assessment & Plan (12/28/2021 7:00 AM CDT): .pap done today. Await results. Assessment & Plan (09/07/2021 11:53 AM CDT): Due for wwe History of depression 04/18/2018 Assessment & Plan (12/28/2021 7:01 AM CDT): Mood off today, but I think she has so much going on with work and the kids, she is overwhelmed. Resolved Problems Problem Noted Date Diagnosed Date Resolved Date IUGR, 04/08/2024 05/19/2024 37 weeks gestation of 04/08/2024 05/19/2024 Vaginal delivery 04/08/2024 05/19/2024 Poor growth affecting management of mother in third trimester 04/04/2024 05/19/2024 GBS (group B Streptococcus c arrier), +RV culture, currently 03/23/2024 05/19/2024 Low-lying placenta 12/17/2023 Overview (03/07/2024): Posterior: 1.5 cm away from internal os. Resolved in January. Maternal iron deficiency ane nadir complicating in second trimester 12/17/2023 05/19/2024 Encounter for evaluation reg arding contraception options 08/10/2022 03/21/2024 Assessment & Plan (08/10/2022 2:10 PM SKILL TRAINING PROGRAM COORDINATOR): nexplanon removed without difficulty Care instructions reviewed rto November for wwe Well woman exam 10/24/2021 03/25/2024 Overview (12/28/2021): Lab: Pap:h/o abnl. Needs yearly. She has had three normals since No recent labs. Cheryle: Colonoscopy: BMD: Gardasil:need to discuss Assessment & Plan (12/28/2021 7:04 AM CDT): Pap done. RTO 12m. I will send the results to the portal. If she has not heard in a week, to call the office. nexplanon due out 06/2022 She is not sure what she will do after. Anemia affecting in third trimester 10/01/19 19 06/26/2019 Premature cervical dilation in third trimester 08/23/2018 06/26/2019 Short cervix affecting 08/02/2018 06/07/2021 Overview (08/02/2018): 1.7 cm with funneling on office sono 2018. Depression during in first trimester 04/18/2018 06/26/2019 No pathologic diagnosis 07/19/201203/26 Overview (09/27/2016): No diagnosis Vaginal delivery 06/26/2019 Encounters Date Type Department Care Team Description 01/26/2025 Home Infusion [facility] [address] [place] [address] Renee Cadet, [facility] from Last 3 Months Immunizations Immunization Administration Dates Next Due Influenza, Quadrivalent, Spl it, Preservative Free, Intramuscular 08/02/2018 Influenza, Trivalent, Preser vative Free, Intramuscular 04/04/2024(Deferred: Patient ill today) Tdap 03/21/2024 Surgical History Surgery Date Site/Laterality Comments OTHER SURGICAL HISTORY 2012 : OTHER SURGICAL HISTORY 2016 : 1 hr labor OTHER SURGICAL HISTORY LGSIL pap and positive HR HPV in 2016: Colpo OTHER SURGICAL HISTORY 2016 LGSIL pap and positive HR 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 Medical History Medical History Date Comments Hx Other Medical 2011 ; Outc ome: 37 week 5 lb(s) 13 oz Female Hx Other Medical ; Outc ome: 37W0D week 6lb(s) 6 oz Male Hx Other Medical 2014 LGSIL pap and p ositive HR HPV in 2016 Hx Other Medical 2015 LGSIL pap and p ositive HR HPV in 2016 Abnormal Pap smear of cervix HX of LSIL and HPV Anxiety Miscarriage 07/2023 Family History Medical History Relation Name Comments Breast cancer Father's Sister Cancer, caterina ast; Heart disease Maternal Grandmother Heart disease; Heart disease Mother Heart disease; Prostate cancer Paternal Grandfather Canc er, prostate; Diabetes Paternal Grandmother Diabete s mellitus; Hypertension Paternal Grandmother Hyperte nsion; Lung cancer Paternal Grandmother Cancer, lung; Cancer Neg Hx no change cmt Relation Name Status Comments Father's Sister Maternal Grandmother Mother Paternal Grandfather Paternal Grandmother Social History Tobacco Use Types Packs/Day Years Used Date Smoking Tobacco: Never Passive Smoke Exposure: Never Smokeless Tobacco: Never Tobacco Cessation:Counseling Given: Not Answered Alcohol Use Standard Drinks/Week Comments No 0 (1 standard drink = 0.6 oz pur e alcohol) [facility] Utilities Answer Date Recorded In the past 12 months has e [facility] [place], gas, oil, or water [employer] threatened to shut off services in your home? Yes 03/28/2024 Humiliation, Afraid, Rape, and Kick questionnair e Answer Date Recorded Within the last year, have y ou been afraid of your partner or ex-partner? No 03/28/2024 Within the last year, have y ou been humiliated or emotionally abused in other ways by your partner or ex-partner? No Within the last year, have y ou been kicked, hit, slapped, or otherwise physically hurt by your partner or ex-partner? No 03/28/2024 Within the last year, have y ou been raped or forced to have any kind of sexual activity by your partner or ex-partner? No 03/28/2024 Social Connection and Isolation Panel Answer Date Recorded In a typical week, how many times do you talk on the phone with family, friends, or neighbors? More than three times a week 04/08/2024 How often do you get togethe r with friends or relatives? More than three times a week 04/08/2024 How often do you attend chur ch or taoism services? Never 04/08/2024 Do you belong to any clubs o r organizations such as taoism groups, unions, fraternal or athletic groups, or school groups? Yes 04/08/2024 How often do you attend meet ings of the clubs or organizations you belong to? More than 4 times per year 04/08/2024 Are you , , di vorced, , never , or living with a partner? Never 04/08/2024 AUDIT-C Answer Date Recorded Q1: How often do you have a drink containing alcohol? Never 04/08/2024 Q2: How many drinks containi ng alcohol do you have on a typical day when you are drinking? Patient does not drink Q3: How often do you have si x or more drinks on one occasion? Never 04/08/2024 Overall Financial Resource Strain (CARDIA) Answe r Date Recorded How hard is it for you to pa y for the very basics like food, housing, medical care, and heating? Not hard at all 04/08/2024 PHQ-2 Answer Date Recorded PHQ-2 Total Score (If total score is 3 or more points, staff should administer the PHQ-9) 2 04/08/2024 [facility]ational Stress Questionnaire Answer Date Recorded Do you feel stress - tense, restless, nervous, or anxious, or unable to sleep at night because your mind is troubled all the time - these days? To some extent 04/08/2024 Exercise Vital Sign Answer Date Recorde d On average, how many days pe r week do you engage in moderate to strenuous exercise (like a brisk walk)? 0 days 04/08/2024 On average, how many minutes do you engage in exercise at this level? 0 min 04/08/2024 Hunger Vital Sign Answer Date Recorded Within the past 12 months, y ou worried that your food would run out before you got the money to buy more. Often true 04/08/20 24 Within the past 12 months, t he food you bought just didn't last and you didn't have money to get more. Often true 04/08/2024 PRAPARE - Transportation Answer Date Re corded In the past 12 months, has l ack of transportation kept you from medical appointments or from getting medications? No 03/25 In the past 12 months, has l ack of transportation kept you from meetings, work, or from getting things needed for daily living? No 04/08/2024 Rea Depression Scale Answer Date Recorded Rea Depression Scale Total 4 03/28/2024 The thought of harming myself has occurred to me . Never 03/28/2024 PHQ-9 Answer Date Recorded PHQ-9 Total Score 8 04/08/2024 Housing Stability Vital Sign Answer Margarito e Recorded In the last 12 months, was t here a time when you were not able to pay the mortgage or rent on time? No 04/08/2024 In the past 12 months, how m any times have you moved where you were living? 0 04/08/2024 At any time in the past 12 m onths, were you homeless or living in a chcf (including now)? No 04/08/2024 Personal Safety Answer Date Recorded Have you ever been in or are you currently in a harmful physical or emotional relationship or is someone making you feel afraid or unsafe? Denies 04/08/2024 Comments No Sex and Gender Information Value Date Recorded Sex Assigned at Not on file Legal Sex Female 1:43 PM SKILL TRAINING PROGRAM COORDINATOR Gender Identity Female 10/02/2019 12:38 PM CDT Sexual Orientation Straight 10/02/2019 12 :38 PM CDT Obstetrics History Para Term AB IAB SAB Ectopic Multiple Livin g Live Births 6 4 4 0 2 0 2 0 0 4 4 Date Outcome GA Total Labor Labor/2nd/3rd Weight Sex Type Anes PTL Vanessa A1 A5 Name Clin SAB 2 Term 37w 0d 2.637 kg (5 lb 13 oz) F Vag-Sp ont Livin g 6 Term 37w 0d 2.892 kg (6 lb 6 oz) M Vag-Sp ont Livin g 2018 Term 38w 2d 1h 18m 1h 10m/0h 03m/0h 05m 2.806 kg (6 lb 3 oz) M Vag-Sp ont Local N Livin g 8 9 SIMMO NS,AVERY YCHRI TOBI Charles y, Jose Francisco Rodriguez MD Complications:None Delivery Location:This [facility] ([facility]) 2023 SAB 5w0 d SAB 2023 Term 37w 0d 0h 20m 0h 06m/0h 06m/0h 08m 2.411 kg (5 lb 5 oz) F Vagina l Local Y Livin g 7 9 Allou ra Jose Francisco Rivas MD Complications:None Delivery Location:This [facility] ([facility]) Last Filed Vital Signs Vital Sign Reading Time Taken Comments Blood Pressure 110/76 05/19/2024 1:17 PM SKILL TRAINING PROGRAM COORDINATOR Pulse 62 04/10/2024 4:00 PM CDT Temperature 36.2 C (97.2 F) 04/10/2024 4:00 PM CDT Respiratory Rate 15 04/09/2024 11:54 PM CDT Oxygen Saturation 100% 04/09/2024 12:44 AM CDT Inhaled Oxygen Concentration - - Weight 59.4 kg (131 lb) 05/19/2024 1:17 PM SKILL TRAINING PROGRAM COORDINATOR Height 157.5 cm (5' 2) 05/19/2024 1:17 PM SKILL TRAINING PROGRAM COORDINATOR Body Mass Index 23.96 05/19/2024 1:17 PM SKILL TRAINING PROGRAM COORDINATOR Plan of Treatment Health Maintenance Due Date Last Done Comments Varicella Vaccines (1 of 2 - 13+ 2-dose series) 09/23/2003 Hepatitis B Screening 2008 HPV Vaccines (1 - 3-dose SCDM series) 2017 Regular Well Visit/Exam 18-64 12/15/2022 12/15/2021, 08/17/2020, 06/26/2019, Additional history exists Cervical Cancer Screening 10/11/20242023, 12/15/2021, 08/17/2020, Additional history exists Influenza Vaccine (#1) 2025 08/02/2018 Depression Screening 03/28/2025 03/28/2024, 03/23/2024, 03/23/2024, Additional history exists DTaP/Tdap/Td Vaccine (7 - Td or Tdap) 03/21/2034 03/21/2024, 03/06/1995, 11/02/1992, Additional history exists Hepatitis C Screening Completed 10/12/2023 , 04/18/2018, 06/14/2015 Pneumococcal vaccine <65 Aged Out No longer eligible based on patient's age to complete this topic Procedures Procedure Name Priority Date/Time Associated Diagnosis Comments HEPATITIS C ANTIBODY Routine 10/12/2023 2:33 PM CDT Encounter for supervision of other normal in first trimester PAP AND HPV, REFLEX TO HPV GENOTYPES Routine 10/12/2023 2:23 PM CDT Encounter for supervision of other normal in first trimester 11 weeks gestation of from Last 3 Months or Most Recently Relevant to Health Maintenance Results * Hepatitis C antibody Blood (10/12/2023 2:33 PM CDT) Hep C Ab Nonreactive Nonreactive Comment: Interpretive Data Nonreactive: Antibodies to HCV not detected. Does NOT exclude the possibility of recent exposure to HCV. Equivocal: Equivocal for HCV antibodies. Supplemental molecular testing will be automatically performed to determine infection status in accordance with current CDC screening recommendations. Reactive: Positive for HCV antibodies. This may represent current or past HCV infection. Supplemental molecular testing will be automatically performed to determine current infection status in accordance with current CDC screening recommendations. Interpretive data was last revised on 2019. Testing performed by: [facility], [address] [place] [address]., [id number] Blood 10/12/2023 2:33 PM CDT 10/12/2023 6:32 PM CDT Jamel Peacock MD LAB MICROBIOLOGY - GENERAL ORDERABLES Final Result [facility]) 1 [facility] Department [place] [address] * Pap and HPV, reflex to HPV Genotypes (10/12/2023 2:23 PM CDT) CLINICAL INFORMATION: [employer] [facility] Comment: LMP [employer] [facility] Comment:UNKNOWN Previous Pap [employer] [facility] Comment:NONE GIVEN Prev. Bx [employer] [facility] Comment:NONE GIVEN SOURCE: [employer] [facility] Comment:Cervix, Endocervix Pap, specimen adequacy [employer] [facility] Comment: Satisfactory for evaluation. Endocervical/transformation zone component present. HPV interp [employer] [facility] Comment: Cytology Results: Negative for intraepithelial lesion or malignancy. Infection: [employer] [facility] Comment: Fungal organisms morphologically consistent with Kathi spp. COMMENTS [employer] [facility] Comment: This Pap test has been evaluated with computer assisted technology. Manufacturing Quality Manager [facility] Comment: TLS, CT(ASCP) CT Screening Location: [address] [address] Comment [facility] Comment: EXPLANATORY NOTE: The Pap is a screening test for cervical cancer. It is not a diagnostic test and is subject to false negative and false positive results. It is most reliable when a satisfactory sample, regularly obtained, is submitted with relevant clinical findings and history, and when the Pap result is evaluated along with historic and current clinical information. Human papillomavirus DNA, High Risk E6/E7 Not Detected NOT DETECTED [facility] [employer] [facility] Comment: Not Detected High Risk HPV types (16,18,31,33,35,39,45,51,52, 56,58,59,66,68) were not detected. Other HPV types which cause anogenital lesions may be present. The significance of the other types of HPV in malignant processes has not been established. Methodology: Real Time PCR Thin prep 10/12/2023 2:23 PM CDT 10/13/2023 3:24 AM CDT Jamel Peacock MD LAB CYTOLOGY ORDERABLES Fi nal Result [address] [place] [address] [employer] [address] [place] [address] from Last 3 Months or Most Recently Relevant to Health Maintenance Insurance COUNTS INCLUDE 234 BEDS AT THE [facility] MEDICAID [facility] Advance Directives For more information, please contact: [phone] * Full Code (Latest Code Status on File) Date Activated Date Inactivated Comments 04/08/2024 11:34 AM 04/11/2024 4:03 AM Full CPR in case of cardiopulmonary arrest * Full Code Date Activated Date Inactivated Comments 10/15/2018 10:38 AM 10/17/2018 8:11 PM Full CPR in case of cardiopulmonary arrest * Full Code Date Activated Date Inactivated Comments 10/03/2018 5:49 AM 10/03/2018 5:43 PM Full CPR in case of cardiopulmonary arrest Care Teams Shoveler Relationship Specialty Start Date End Date Mikki Reddy MD [address] [place] [address] PCP - General Family Medicine 09/22/23 Jamel Peacock MD [address] [place] [address] [employer] Senior [employer] Obstetrics and Gynecology 04/09/24
--- OUTSIDE RECORDS SUMMARY | 2025-03-20 08:27 | XMS_ITS | Clinical Summary ---
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 [employer] Gender Identity Not on file Sexual Orientation Not on file Plan of Treatment Health Maintenance Due Date Last Done Comments Cervical Cancer Screening Pa p Smear (Age 30 to 64) Every 3 Years 1990 Annual Physical 1993 Hepatitis C 2008 DTaP, Tdap and Td Vaccines ( 1 - Tdap) 2009 Hepatitis B Vaccines (1 of 3 - 19+ 3-dose series) 2009 HPV Vaccines (1 - 3-dose SCD M series) 2017 Cervical Cancer Screening Pa p with HPV Testing (Age 30 to 64) Every 5 Years 2020 Cervical Cancer Screening with HPV 2020 COVID-19 Vaccine (2023-2 5 season) 2025 Meningococcal B Vaccine Aged Out No l onger eligible based on patient's age to complete this topic Meningococcal Vaccine Aged Out No varun lakes[place] eligible based on patient's age to complete this topic Pneumococcal Vaccine: Pediat rics (0 to 5 Years) and At-Risk Patients (6 to 49 Years) Aged Out No longer eligible b ased on patient's age to complete this topic RSV Immunizations Under 20 Months Aged Out No longer eligible based on patient's age to complete this topic
--- OUTSIDE RECORDS SUMMARY | 2025-03-20 08:27 | XMS_ITS | Encounter Summary ---
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
--- NOTE | 2025-03-20 08:28 | ED_ITS ---
HPI - Chest Pain General Chief Complaint: Chest Pain Stated Complaint: chest pain Source: patient Mode of arrival: ambulatory Limitations: no limitations History of Present Illness HPI narrative: Patient is a 34-year-old female with left-sided chest pain that started today. The pain radiates to the left shoulder and left arm and up the back of the left neck. It has a sharp and pressure-like feeling. No history of CAD issues. She just finished a steroid pack. She has a headache that is been going on for a few weeks and her primary doctor is working on that with an MRI coming up. Patient is breast feeding. MD complaint: chest pain Pertinent past history: other (Anemia) Onset (ago): day(s) (1) Timing of current episode: constant and still present Prior episodes: No Onset: during rest and during exertion Pain location: substernal and left chest Pain radiation: left arm and neck Severity: moderate Pain scale (0-10): 5 Quality: heaviness and sharp Relieving factors: nothing Exacerbating factors: stress Context: other (Patient having left-sided chest pain for the past day) Associated symptoms: other (None) Treatment prior to arrival: none Risk Factors Coronary artery disease risk factors: none Thoracic aortic dissection risk factors: none Related Data On Oral Contraceptives: No Home Medications ?Medication ?Instructions ?Recorded ?Confirmed ?Last Taken ?Type rizatriptan 5 mg disintegrating 5 mg PO DAILY PRN Migr juan carlos Headache 01/03/23 04/17/23 Unknown History tablet Allergies Allergy/AdvReac Type Severity Reaction Status Date / Time Penicillins AdvReac Intermediate Swelling Verified 03/20/25 08:29 Review of Systems 2 Review of Systems: All systems reviewed & are unremarkable except as noted in HPI and below Constitutional: Constitutional: Reports no additional constitutional complaints Eyes: Eyes: Reports no additional eye complaints ENT: Reports system reviewed and no additional complaints, except as documented Cardiovascular: Cardiovascular: Reports no additional cardiovascular complaints Respiratory: Respiratory: Reports no additional respiratory complaints Gastrointestinal: Gastrointestinal: Reports no additional gastrointestinal complaints Genitourinary: Genitourinary: Reports no additional female genitourinary complaints Musculoskeletal: Musculoskeletal: Reports no additional musculoskeletal complaints Integumentary/Breasts: Skin/Breast: Reports system reviewed and no additional complaints, except as docu Neurologic: Reports system reviewed and no additional complaints, except as documented Psychiatric: Psychiatric: Reports no additional psychiatric complaints Endocrine: Endocrine: Reports no additional endocrine complaints Hematologic/Lymphatic: Hematologic/Lymphatic: Reports no additional hematologic/lymphatic complaints Allergic/Immunologic: Allergic/Immunologic: Reports no additional allergic/immunologic complaints PMFSH Family History Family History Unknown Asthma Hypertension Depression Heart disease Arthritis Cerebrovascular accident Kidney disorder Social History Social History Smoking status: Former smoker Tobacco type: cigars Additional smoking assessment comments: occasional in high school 2008 Alcohol intake: current Drinks per week: 2 Substance use: former Other substance usage details: marijuana in college Living arrangements: with family Gender identity (if verbalized by the patient): Female Spiritual care concerns: No Exam 2 Const: General: healthy appearing Nutritional Appearance: well nourished Orientation/consciousness: patient oriented x3 Limitations: no limitations HENMT: Head: normal to inspection Ears: external ears normal F amna/Nose/Sinus: Normal external nose present Eyes: Conjunctivae: conjunctivae normal Pupils: Equal, round and reactive pupils present EOM: EOMs intact bilaterally Neck: Neck: normal visual inspection Chest: Chest palpation & inspection: normal inspection of the chest Resp: Effort & Inspection: normal respiratory effort and not labored A uscultation: clear to auscultation bilaterally and no crackles Cardio: Rate: regular rate Rhythm: regular rhythm Heart sounds: no murmurs GI: Inspection: non-distended GI Palp: Yes Soft to palpation and No Tenderness to palpation present (GI) Auscultation: normal bowel sounds : General: Yes bladder normal to palpation Back/Spine/Pelvis: Back: no CVA tenderness Skin: General skin exam: normal color Rashes: no rashes Wounds: no wounds Neuro: General: patient oriented x3, moves all extremities and no meningeal signs Extrem: General: normal to inspection, no clubbing, cyanosis or edema and no pedal edema Psych: Mental Status: mental status grossly normal Affect: normal affect Attitude: cooperative Course Vital Signs Vital signs: Vital Signs Temperature 36.8 C 03/20/25 08:24 Pulse Rate 66 03/20/25 08:24 Respiratory Rate 16 03/20/25 08:24 Blood Pressure 143/91 H 03/20/25 08:24 Pulse Oximetry 100 03/20/25 08:24 Oxygen Delivery Room Air 03/20/25 08:24 Temperature 36.8 C 03/20/25 08:24 Pulse Rate 63 03/20/25 09:16 Respiratory Rate 16 03/20/25 09:16 Blood Pressure 130/88 03/20/25 09:16 Pulse Oximetry 99 03/20/25 09:16 Oxygen Delivery Room Air 03/20/25 09:16 MDM - Chest Pain MDM Narrative Medical decision making narrative: Patient is a 34-year-old female with left-sided chest pain for the past day. We will do cardiac workup at this time. Lab Data Attestation: I reviewed the patient's lab results. 03/20/25 08:41 03/20/25 08:41 Labs: Lab Results 03/20/25 03/20/25 Range/Units 08:41 09:55 WBC 4.6 L (4.8-10.8) K/mm3 RBC 3.95 L (4.20-5.40) M/mm3 Hgb 10.8 L (12.0-15.0) g/dL Hct 34.2 L (35.0-49.0) % MCV 86.6 (78.0-102.0) fL MCH 27.3 (27.0-31.0) pg MCHC 31.6 L (32-36) g/dL RDW 14.1 (11.6-14.4) % Plt Count 258 (150-420) K/mm3 MPV 11.3 (9.2-11.8) fl Immature Gran % (Auto) 0.2 H (0.0-0.0) % Neut % (Auto) 44.4 L (50.0-70.0) % Lymph % (Auto) 44.1 H (18.0-42.0) % [place] % (Auto) 8.7 (2.0-11.0) % Eos % (Auto) 2.2 (1.0-6.0) % Baso % (Auto) 0.4 (0.0-1.0) % Lymph # (Auto) 2.02 (1.10-4.50) K/mm3 [place] # (Auto) 0.40 (0.10-0.90) K/mm3 Eos # (Auto) 0.10 (0.02-0.50) K/mm3 Baso # (Auto) 0.02 (0.00-0.10) K/mm3 Abs Immat Gran (auto) 0.01 H (0.00-0.00) K/mm3 Absolute Neuts (auto) 2.03 (1.70-7.20) K/mm3 Absolute Nucleated RBC 0.00 (0.00-0.00) K/mm3 Nucleated RBC % 0.0 (0-0.0) % PT 10.5 (9.50-12.1) Seconds INR 0.9 APTT 28.3 (23.9-30.70) Sec D-Dimer 0.19 (0.19-0.50) mg/L Sodium 143 (137-145) mmol/L Potassium 4.0 (3.4-5.0) mmol/L Chloride 106 (98-107) mmol/L Carbon Dioxide 25 (22-30) mmol/L Anion Gap 12 (4-12) mmol/L BUN 9 (7-17) mg/dL Creatinine 0.70 (0.7-1.0) mg/dL Estim Creat Clear Calc 77 ml/min Estimated GFR > 60 (59 - ) Glucose 88 (65-110) mg/dL Calculated Osmolality 293 (285-295) mOsm/kg Calcium 9.4 (8.4-10.2) mg/dL Total Bilirubin 0.4 (0.2-1.3) mg/dL AST 25 (14-36) U/L ALT 15 (6-35) U/L Alkaline Phosphatase 83 (38-126) U/L Troponin I < 0.012 (0.000-0.034) ng/mL NT-Pro-B Natriuret Pep 29 (19.9-100) pg/mL Total Protein 9.2 H (6.3-8.2) g/dL Albumin 4.6 (3.5-5.1) g/dL Lipase 59 (23-300) U/L Urine Color Light yellow (Yellow) Urine Appearance Clear (Clear) Urine pH 6.0 (5.0-8.0) Ur Specific [place] 1.020 (1.010-1.020) Urine Protein Negative (Negative) Urine Glucose (UA) Negative (Negative) Urine Ketones Negative (Negative) Ur Blood (Man) Negative (Negative) Urine Nitrate Negative (Negative) Urine Bilirubin Negative (Negative) Urine Urobilinogen 0.2 (0.2-1.0) mg/dL Leukocyte Esterase Rfl Negative (Negative) MEGA/UL Imaging Data Attestation: I personally reviewed and interpreted this imaging study as follows: Radiologist's impression: Chest x-ray is negative for acute process ECG Data EKG #1: Attestation: I personally reviewed and interpreted this ECG as follows: ECG completion date: 03/20/25 ECG completion time: 08:40 EKG Interpretation: normal rate, sinus rhythm, no ectopy, no ST changes, normal QRS, normal QT and NL axis Discharge Plan Discharge Clinical Impression: Atypical chest pain, Acute costochondritis Patient Disposition: Home Condition: Stable Instructions: Costochondritis (ED), Chest Wall Pain (ED) Patient Language: Malay Prescriptions: New diclofenac potassium 25 mg tablet 25 mg PO BID PRN (Reason: pain) Qty: 20 0RF Rx Instructions: 1-2 tabs per dose No Action rizatriptan 5 mg tablet,disintegrating 5 mg PO DAILY PRN (Reason: Migraine Headache) Follow-up/Referrals: UNKNOWN,DOCTOR [Non-Staff] Time of Disposition: 10:41
[2025-03-20 08:46] LABS: Hematocrit 34.2 % (35.0-49.0); Hemoglobin 10.8 g/dL (12.0-15.0); Immature Granulocyte Percent A 0.2 % (0.0-0.0); Lymphocytes Absolute Auto 2.02 K/mm3 (1.10-4.50); Mean Corpuscular HGB Conc 31.6 g/dL (32-36); Mean Corpuscular Hemoglobin 27.3 pg (27.0-31.0); Mean Corpuscular Volume 86.6 fL (78.0-102.0); Nucleated Red Blood Cells Absolute Auto 0.00 K/mm3 (0.00-0.00); Nucleated Red Blood Cells Perc 0.0 % (0-0.0); Platelet Count Result 258 K/mm3 (150-420); Red Blood Count 3.95 M/mm3 (4.20-5.40); White Blood Count 4.6 K/mm3 (4.8-10.8)
[2025-03-20 08:57] LABS: Alanine Aminotransferase 15 U/L (6-35); Albumin Level 4.6 g/dL (3.5-5.1); Alkaline Phosphatase 83 U/L (38-126); Anion Gap 12 mmol/L (4-12); Aspartate Amino Transferase 25 U/L (14-36); Bilirubin,Total 0.4 mg/dL (0.2-1.3); Blood Urea Nitrogen 9 mg/dL (7-17); Calcium 9.4 mg/dL (8.4-10.2); Carbon Dioxide 25 mmol/L (22-30); Chloride 106 mmol/L (98-107); Estimated CRCL calculation 77 ml/min; Estimated Glomerular Filt Rate > 60; Glucose 88 mg/dL (65-110); Lipase 59 U/L (23-300); Osmolality Calculated 293 mOsm/kg (285-295); Potassium 4.0 mmol/L (3.4-5.0); Sodium 143 mmol/L (137-145); Total Protein 9.2 g/dL (6.3-8.2)
[2025-03-20 09:01] LABS: INR 0.9; Partial Thromboplastin Time 28.3 Sec (23.9-30.70); Prothrombin Time 10.5 Seconds (9.50-12.1)
--- OUTSIDE RECORDS SUMMARY | 2025-03-20 09:05 | XMS_ITS | Encounter Summary ---
Author Organization [facility] Healthcare Address [address] [place] [address] Care Team Providers Care Form Grader Operator Name Role Phone No, Physician Primary Care Provider Unknown, Notinfile Primary Care Provider Unavail able Joshua Cook MD Primary Care Provider [phone] Mikki Reddy MD Primary Care Provider [phone] Jamel Peacock MD Unavailable [phone] Encounter Details Date Type Department Care Team (Late st Contact Info) Description 07/15/2018 Documentation [facility] [address] [place] [address] Izzy Ayoub RN Social History Tobacco Use Types Packs/Day Years Used Date Smoking Tobacco: Never Smokeless Tobacco: Never Alcohol Use Standard Drinks/Week Comments No 0 (1 standard drink = 0.6 oz pur e alcohol) Comments Yes Sex and Gender Information Value Date Recorded Sex Assigned at Not on file Legal Sex Female 1:43 PM TECHNOLOGY ARCHITECT Gender Identity Female 10/02/2019 12:38 PM CDT Sexual Orientation Straight 10/02/2019 12 :38 PM CDT documented as of this encounter Plan of Treatment Not on file documented as of this encounter Visit Diagnoses Not on filedocumented in this encounter Additional Health Concerns Infection Onset Date Last Indicated Resolved Time COVID: Suspected 08/16/2023 08/16/2023 08/16/2023 5:10 PM TECHNOLOGY ARCHITECT COVID: Suspected 08/16/2023 08/16/2023 08/17/2023 3:05 AM TECHNOLOGY ARCHITECT COVID: Suspected 08/16/2023 08/16/2023 08/17/2023 7:02 AM TECHNOLOGY ARCHITECT documented as of this encounter Care Teams Form Grader Operator Relationship Specialty Start Date End Date No, Physician PCP - General 04/03/17 04/19/20 Unknown, Notinfile PCP - General 04/20/20 04/07/21 Joshua Cook MD PCP - General 04/08/21 09/21/23 Mikki Reddy MD [address] [place] [address] PCP - General Family Medicine 09/22/23 Jamel Peacock MD [address] [place] [address] Biofuels Engineering Manager Obstetrics and Gynecology 04/09/24 documented as of this encounter
--- OUTSIDE RECORDS SUMMARY | 2025-03-20 09:05 | XMS_ITS | Clinical Summary ---
Author Organization [facility] Address [address] [place] [address] Care Team Providers Care Coding Support Specialist Name Role Phone Mikki Reddy MD Primary Care Provider [phone] Jamel Peacock MD Unavailable [phone] Allergies Active Allergy Reactions Criticality Noted Date [...] ocn Assessment & Plan (05/27/2021 9:31 AM SERVICE UNIT OPERATOR OIL WELL): Most likely secondary to the cyst or [...] 03/21/2024 Assessment & Plan (08/10/2022 2:10 PM SERVICE UNIT OPERATOR OIL WELL): nexplanon removed without difficulty Care instructions reviewed [...] Infusion [facility] [address] [place] [address] Renee Cadet, [facility] from Last 3 Months Immunizations Immunization [...] drink = 0.6 oz pur e alcohol) [facility] Utilities Answer Date Recorded In the past 12 months has e [employer], gas, oil, or water [employer] threatened to shut off services in your [...] often do you attend chur ch or jehovah's witness services? Never 04/08/2024 Do you belong to any clubs o r organizations such as shinto groups, unions, fraternal or athletic groups, or [...] staff should administer the PHQ-9) 2 04/08/2024 [facility] [place] [facility] - Occupational Stress Questionnaire Answer Date [...] things needed for daily living? No 04/08/2024 [place] Depression Scale Answer Date Recorded [place] Depression Scale Total 4 03/28/2024 The thought [...] were you homeless or living in a longterm (including now)? No 04/08/2024 Personal Safety Answer Date Recorded Have you ever been in or are you currently in a harmful physical or emotional relationship or is someone making you feel afraid or unsafe? Denies 04/08/2024 Comments No Sex and Gender Information Value Date Recorded Sex Assigned at Not on file Legal Sex Female 1:43 PM SERVICE UNIT OPERATOR OIL WELL Gender Identity Female 10/02/2019 12:38 PM CDT [...] Jose Francisco Rodriguez MD Complications:None Delivery Location:This [facility] ([facility]) 2023 SAB 5w0 d SAB 2023 Term 37w 0d 0h 20m 0h 06m/0h 06m/0h 08m 2.411 kg (5 lb 5 oz) F Vagina l Local Y Livin g 7 9 Allou ra Jose Francisco Rivas MD Complications:None Delivery Location:This Fac[facility] ([facility]) Last Filed Vital Signs Vital Sign Reading Time Taken Comments Blood Pressure 110/76 05/19/2024 1:17 PM SERVICE UNIT OPERATOR OIL WELL Pulse 62 04/10/2024 4:00 PM CDT Temperature 36.2 C (97.2 F) 04/10/2024 4:00 PM CDT Respiratory Rate 15 04/09/2024 11:54 PM CDT Oxygen Saturation 100% 04/09/2024 12:44 AM CDT Inhaled Oxygen Concentration - - Weight 59.4 kg (131 lb) 05/19/2024 1:17 PM SERVICE UNIT OPERATOR OIL WELL Height 157.5 cm (5' 2) 05/19/2024 1:17 PM SERVICE UNIT OPERATOR OIL WELL Body Mass Index 23.96 05/19/2024 1:17 PM SERVICE UNIT OPERATOR OIL WELL Plan of Treatment Health Maintenance Due Date [...] last revised on 2019. Testing performed by: [facility], [address] [place] [address]., [address] Blood 10/12/2023 2:33 PM CDT 10/12/2023 6:32 PM CDT Jamel Peacock MD LAB MICROBIOLOGY - GENERAL ORDERABLES Final Result [facility]) [address] [facility] Department [place] [address] * Pap and HPV, reflex to HPV Genotypes (10/12/2023 2:23 PM CDT) CLINICAL INFORMATION: [facility] Comment: LMP [facility] Comment:UNKNOWN Previous Pap [facility] Comment:NONE GIVEN Prev. Bx [facility] Comment:NONE GIVEN SOURCE: [facility] Comment:Cervix, Endocervix Pap, specimen adequacy [facility] Comment: Satisfactory for evaluation. Endocervical/transformation zone component present. HPV interp [facility] Comment: Cytology Results: Negative for intraepithelial lesion or malignancy. Infection: [facility] Comment: Fungal organisms morphologically consistent with Kathi spp. COMMENTS [facility] Comment: This Pap test has been evaluated with computer assisted technology. Skiver Hand [facility] Comment: TLS, CT(ASCP) CT Screening Location: [address] [address] Comment [facility] Comment: EXPLANATORY NOTE: The Pap is [...] High Risk E6/E7 Not Detected NOT DETECTED [facility] Funding Options /[facility] Comment: Not Detected High Risk HPV types (16,18,31,33,35,39,45,51,52, 56,58,59,66,68) were not detected. Other HPV types which cause anogenital lesions may be present. The significance of the other types of HPV in malignant processes has not been established. Methodology: Real Time PCR Thin prep 10/12/2023 2:23 PM CDT 10/13/2023 3:24 AM CDT Jamel Peacock MD LAB CYTOLOGY ORDERABLES Fi nal Result [address] [place] [place] [address] [facility] [address] [place] [address] from Last 3 Months or Most Recently Relevant to Health Maintenance Insurance [facility] MEDICAID [facility] Advance Directives For more information, please contact: [phone] * Full Code (Latest Code Status on [...] in case of cardiopulmonary arrest Care Teams Coding Support Specialist Relationship Specialty Start Date End Date Mikki Reddy MD [address] [place] [address] PCP - General Family Medicine 09/22/23 Jamel Peacock MD [address] [place] [address] Health Care Attorney Obstetrics and Gynecology 04/09/24
[2025-03-20 09:08] LABS: NT Pro B Type Natriuretic Pept 29 pg/mL (19.9-100)
--- OUTSIDE RECORDS SUMMARY | 2025-03-20 09:08 | XMS_ITS | Clinical Summary ---
Author Organization [facility] Address [address] [place] [id number] Care Team Providers Care Access Assoc Name Role Phone Unavailable Primary Care Provider Unavailabl e Social History Tobacco Use Types Packs/Day Years Used Date Smoking Tobacco: Never Assessed Comments Unknown Sex and Gender Information Value Date Recorded Sex Assigned at Not on file Legal Sex Female 11:[address] SWEEPER OPERATOR Gender Identity Not on file Sexual Orientation [...]
[2025-03-20 09:10] LABS: Troponin I < 0.012 ng/mL (0.000-0.034)
[2025-03-20 09:59] LABS: Add Urine Microscopic? NO; Appearance Urine Clear (Clear); Glucose Urine UA Negative (Negative); Leukocyte Esterase Ur Negative LEU/UL (Negative); Nitrate Urine Negative (Negative); Specific Grav Ur 1.020 (1.010-1.020)
[2025-03-20] MEDS: KETOROLAC (*BKC) 60 MG/2 ML VIAL IM (10:04)
== END 2025-03-20 10:53 | disposition home or self-care (01) ==
PROVIDERS: Emergency Provider Emergency Medicine; PCP Registered Nurse
DX: M94.0 Chondrocostal junction syndrome [Tietze] (principal); Z87.891 Personal history of nicotine dependence
CPT/HCPCS: 36415; 71045; 80053; 81003; 83690; 83880; 84484; 85025; 85380; 85610; 85730; 93005; 96372; 99284; J1885

== ENCOUNTER 2025-04-04 07:05 | Outpatient (CLI) | payer OTHER, SELFPAY ==
--- NOTE | ~2025-04-04 | MR_ITS ---
EXAMINATION: MR brain/brain stem wo con DATE: 04/04/2025 07:52 INDICATION: Headache. TECHNIQUE: Magnetic resonance imaging (MRI) of the brain and brainstem was performed without intravenous contrast. 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 There is no intracranial hemorrhage, acute infarction, or abnormal intracranial mass lesion. The ventricles are normal in size. The orbits are normal. There is mucosal thickening in the paranasal sinuses. The mastoid air cells are normal. IMPRESSION: 1. Normal brain. Reviewed, dictated and finalized at location E. IMPRESSION: 1. Normal brain.
== END 2025-04-04 07:06 | disposition home or self-care (01) ==
LOC: CHSIMG 07:06
PROVIDERS: PCP Registered Nurse; Visit Provider Registered Nurse
DX: G43.909 Migraine, unspecified, not intractable, without status migrainosus (principal)
CPT/HCPCS: 70551